=== PATIENT | male | born 1960 | race Caucasian/White ===

== ENCOUNTER 2021-06-12 20:20 | Inpatient (IN) | payer BC ==
[2021-06-12] MEDS ORDERED: SODIUM CHLORIDE 1,000 ML ONE (21:25)
[2021-06-12] MEDS ORDERED: ACETAMINOPHEN 500 MG TABLET (FP) PO ONE (21:25)
[2021-06-12] MEDS ORDERED: ACETAMINOPHEN 500 MG TABLET (FP) ONE (21:31)
[2021-06-12 21:54] LABS: ALBUMIN 3.6 g/dl (3.4-5.0); BILIRUBIN,TOTAL 1.3 mg/dl (0.2-1); CALCIUM 8.2 mg/dl (8.5-10); CREATININE 0.9 mg/dl (0.55-1.3)
[2021-06-12 22:42] LABS: HEMATOCRIT 46.7 % (35.4-49); HEMOGLOBIN 15.7 GM/dL (11.7-16.9); MCH 29.2 pg (25.7-33.7); MCHC 33.6 g/dl (32.0-35.9); MEAN CELL VOLUME 86.7 fl (80-96); MEAN PLT VOLUME 8.9 fl (7.5-11.1); PLATELET COUNT 250 10^3/uL (134-434); RBC 5.39 M/mm3 (4.00-5.60); RDW 21.4 % (11.9-15.9); WHITE BLOOD COUNT 5.1 K/mm3 (4.0-10.0)
[2021-06-12 23:55] LABS: ANISOCYTOSIS 1+; MACROCYTOSIS 0; PLATELET ESTIMATE NORMAL
[2021-06-13] MEDS ORDERED: DEXAMETHASONE SOD PHOSPHATE 4 MG/1 ML VIAL IVPUSH ONE (03:53)
[2021-06-13] MEDS ORDERED: DEXAMETHASONE SOD PHOSPHATE 10 MG/1 ML VIAL ONE (04:03)
[2021-06-13] MEDS ORDERED: ALBUTEROL SO4 HFA INHALER IH PRN (04:19)
[2021-06-13] MEDS ORDERED: ACETAMINOPHEN 325 MG TABLET (FP) ONE (08:56)
[2021-06-13] MEDS ORDERED: ALBUTEROL SO4 HFA INHALER IH ONE (08:56)
[2021-06-13] MEDS: VALSARTAN 160 MG TABLET PO SCH (09:05)
[2021-06-13] MEDS: ASPIRIN COATED 81 MG TABLET.EC PO SCH (09:05)
[2021-06-13] MEDS: ZINC SULFATE 220 MG CAPSULE (FP) PO SCH (09:06)
[2021-06-13] MEDS: guaiFENesin 200 MG/10 ML 10 ML UNIT-DOSE CUPS PO PRN (09:06)
[2021-06-13] MEDS: ENOXAPARIN NA (PORCINE) 40 MG/0.4 ML DISP.SYRIN SQ SCH (09:06)
[2021-06-13] MEDS: ASCORBIC ACID 500 MG TABLET (FP) PO SCH (09:06)
[2021-06-13] MEDS: amLODIPine BESYLATE 5 MG TABLET (FP) PO SCH (09:06)
[2021-06-13] MEDS: CHOLECALCIFEROL (VIT D3) 1,000 UNIT (25 MCG) TABLET PO SCH (09:06)
[2021-06-13] MEDS: ACETAMINOPHEN 325 MG TABLET (FP) PO PRN (09:06)
[2021-06-13 09:45] LABS: MAGNESIUM 2.3 mg/dL (1.8-2.4)
[2021-06-14] MEDS: ACETAMINOPHEN 325 MG TABLET (FP) PO PRN ×2 (00:12→22:41)
[2021-06-14] MEDS: VALSARTAN 160 MG TABLET PO SCH (09:00)
[2021-06-14] MEDS: DEXAMETHASONE SOD PHOSPHATE 4 MG/1 ML VIAL IVPUSH SCH (09:00)
[2021-06-14] MEDS: ENOXAPARIN NA (PORCINE) 40 MG/0.4 ML DISP.SYRIN SQ SCH (09:00)
[2021-06-14] MEDS: ASPIRIN COATED 81 MG TABLET.EC PO SCH (09:00)
[2021-06-14] MEDS: ZINC SULFATE 220 MG CAPSULE (FP) PO SCH (09:00)
[2021-06-14] MEDS: amLODIPine BESYLATE 5 MG TABLET (FP) PO SCH (09:00)
[2021-06-14] MEDS: ASCORBIC ACID 500 MG TABLET (FP) PO SCH (09:00)
[2021-06-14] MEDS: CHOLECALCIFEROL (VIT D3) 1,000 UNIT (25 MCG) TABLET PO SCH (09:00)
[2021-06-14 10:56] LABS: BLOOD UREA NITROGEN 18.5 mg/dL (7-18); CALCIUM 8.2 mg/dL (8.5-10.1)
[2021-06-14 10:59] LABS: CREATININE 0.9 mg/dL (0.55-1.3)
[2021-06-15 08:42] LABS: BASO % 0.3 % (0-2.0); EOS % 0.1 % (0-4.5); HEMATOCRIT 38.8 % (35.4-49); HEMOGLOBIN 13.1 GM/dL (11.7-16.9); LYMPH % 9.8 % (8-40); MCH 29.5 pg (25.7-33.7); MCHC 33.8 g/dl (32.0-35.9); MEAN CELL VOLUME 87.3 fl (80-96); MEAN PLT VOLUME 7.7 fl (7.5-11.1); MONO % 14.5 % (3.8-10.2); NEUT % 75.3 % (42.8-82.8); PLATELET COUNT 339 10^3/uL (134-434); RBC 4.45 M/mm3 (4.00-5.60); RDW 20.3 % (11.9-15.9); WHITE BLOOD COUNT 8.5 K/mm3 (4.0-10.0)
[2021-06-15 08:59] LABS: ALBUMIN 2.9 g/dl (3.4-5.0); CALCIUM 8.2 mg/dL (8.5-10.1)
[2021-06-15 09:02] LABS: CREATININE 0.8 mg/dL (0.55-1.3)
[2021-06-15 09:04] LABS: BILIRUBIN,TOTAL 0.9 mg/dL (0.2-1)
[2021-06-15] MEDS: amLODIPine BESYLATE 5 MG TABLET (FP) PO SCH (09:09)
[2021-06-15] MEDS: ZINC SULFATE 220 MG CAPSULE (FP) PO SCH (09:09)
[2021-06-15] MEDS: CHOLECALCIFEROL (VIT D3) 1,000 UNIT (25 MCG) TABLET PO SCH (09:09)
[2021-06-15] MEDS: DEXAMETHASONE SOD PHOSPHATE 4 MG/1 ML VIAL IVPUSH SCH (09:09)
[2021-06-15] MEDS: ASCORBIC ACID 500 MG TABLET (FP) PO SCH (09:09)
[2021-06-15] MEDS: ASPIRIN COATED 81 MG TABLET.EC PO SCH (09:10)
[2021-06-15] MEDS: ENOXAPARIN NA (PORCINE) 40 MG/0.4 ML DISP.SYRIN SQ SCH (09:10)
[2021-06-15] MEDS: VALSARTAN 160 MG TABLET PO SCH (09:10)
[2021-06-15 15:27] VITALS: BMI 36.3
[2021-06-15] MEDS: guaiFENesin 200 MG/10 ML 10 ML UNIT-DOSE CUPS PO PRN (21:37)
[2021-06-16 08:47] LABS: BASO % 0.3 % (0-2.0); HEMATOCRIT 41.4 % (35.4-49); LYMPH % 10.8 % (8-40); MCH 29.4 pg (25.7-33.7); MCHC 33.8 g/dl (32.0-35.9); MEAN CELL VOLUME 86.8 fl (80-96); MEAN PLT VOLUME 7.9 fl (7.5-11.1); MONO % 12.6 % (3.8-10.2); NEUT % 76.3 % (42.8-82.8); PLATELET COUNT 404 10^3/uL (134-434); RBC 4.77 M/mm3 (4.00-5.60); WHITE BLOOD COUNT 9.3 K/mm3 (4.0-10.0)
[2021-06-16] MEDS ORDERED: PT OWN MED DRAWER 7, Y5N ONE (09:04)
[2021-06-16 09:08] LABS: BLOOD UREA NITROGEN 18.3 mg/dL (7-18); CALCIUM 8.7 mg/dL (8.5-10.1)
[2021-06-16] MEDS: VALSARTAN 160 MG TABLET PO SCH (09:08)
[2021-06-16] MEDS: ASCORBIC ACID 500 MG TABLET (FP) PO SCH (09:08)
[2021-06-16] MEDS: ZINC SULFATE 220 MG CAPSULE (FP) PO SCH (09:08)
[2021-06-16] MEDS: CHOLECALCIFEROL (VIT D3) 1,000 UNIT (25 MCG) TABLET PO SCH (09:08)
[2021-06-16] MEDS: amLODIPine BESYLATE 5 MG TABLET (FP) PO SCH (09:08)
[2021-06-16] MEDS: guaiFENesin 200 MG/10 ML 10 ML UNIT-DOSE CUPS PO PRN ×2 (09:08→21:52)
[2021-06-16] MEDS: DEXAMETHASONE SOD PHOSPHATE 4 MG/1 ML VIAL IVPUSH SCH (09:08)
[2021-06-16 09:09] LABS: MAGNESIUM 2.4 mg/dL (1.8-2.4)
[2021-06-16] MEDS: ASPIRIN COATED 81 MG TABLET.EC PO SCH (09:09)
[2021-06-16] MEDS: ENOXAPARIN NA (PORCINE) 40 MG/0.4 ML DISP.SYRIN SQ SCH (09:09)
[2021-06-16 09:11] LABS: CREATININE 0.9 mg/dL (0.55-1.3); PHOSPHOROUS 3.2 mg/dL (2.5-4.9)
[2021-06-16 09:12] LABS: TOT PROT 7.6 g/dl (6.4-8.2)
[2021-06-16 09:13] LABS: BILIRUBIN,TOTAL 1.1 mg/dL (0.2-1)
[2021-06-16] MEDS: POLYETHYLENE GLYCOL (HEALTHYLAX) 3350 17 GM PACKET PO SCH (17:41)
[2021-06-17 09:08] LABS: HEMATOCRIT 39.9 % (35.4-49); HEMOGLOBIN 13.5 GM/dL (11.7-16.9); MCH 29.5 pg (25.7-33.7); MCHC 33.7 g/dl (32.0-35.9); MEAN CELL VOLUME 87.7 fl (80-96); MEAN PLT VOLUME 7.9 fl (7.5-11.1); PLATELET COUNT 427 10^3/uL (134-434); RBC 4.56 M/mm3 (4.00-5.60); RDW 19.7 % (11.9-15.9); WHITE BLOOD COUNT 8.4 K/mm3 (4.0-10.0)
[2021-06-17 09:57] LABS: CALCIUM 8.6 mg/dL (8.5-10.1)
[2021-06-17 09:58] LABS: ALBUMIN 2.7 g/dl (3.4-5.0); BLOOD UREA NITROGEN 17.2 mg/dL (7-18); MAGNESIUM 2.5 mg/dL (1.8-2.4)
[2021-06-17 10:00] LABS: PHOSPHOROUS 3.4 mg/dL (2.5-4.9)
[2021-06-17 10:02] LABS: BILIRUBIN,TOTAL 0.8 mg/dL (0.2-1)
[2021-06-17 10:03] LABS: CREATININE 0.9 mg/dL (0.55-1.3)
[2021-06-17 10:22] LABS: ANISOCYTOSIS 1+; MACROCYTOSIS 0; PLATELET ESTIMATE NORMAL
[2021-06-17] MEDS: ENOXAPARIN NA (PORCINE) 40 MG/0.4 ML DISP.SYRIN SQ SCH (10:26)
[2021-06-17] MEDS: VALSARTAN 160 MG TABLET PO SCH (10:26)
[2021-06-17] MEDS: POLYETHYLENE GLYCOL (HEALTHYLAX) 3350 17 GM PACKET PO SCH (10:26)
[2021-06-17] MEDS: DEXAMETHASONE SOD PHOSPHATE 4 MG/1 ML VIAL IVPUSH SCH (10:26)
[2021-06-17] MEDS: ASPIRIN COATED 81 MG TABLET.EC PO SCH (10:26)
[2021-06-17] MEDS: CHOLECALCIFEROL (VIT D3) 1,000 UNIT (25 MCG) TABLET PO SCH (10:27)
[2021-06-17] MEDS: amLODIPine BESYLATE 5 MG TABLET (FP) PO SCH (10:27)
[2021-06-17] MEDS: ASCORBIC ACID 500 MG TABLET (FP) PO SCH (10:27)
[2021-06-17] MEDS: ZINC SULFATE 220 MG CAPSULE (FP) PO SCH (10:27)
[2021-06-17] MEDS: guaiFENesin 200 MG/10 ML 10 ML UNIT-DOSE CUPS PO PRN ×2 (15:17→21:24)
[2021-06-18] MEDS: ACETAMINOPHEN 325 MG TABLET (FP) PO PRN (05:45)
[2021-06-18 09:05] LABS: HEMATOCRIT 38.6 % (35.4-49); MCH 29.3 pg (25.7-33.7); MCHC 33.6 g/dl (32.0-35.9); MEAN CELL VOLUME 87.3 fl (80-96); MEAN PLT VOLUME 7.9 fl (7.5-11.1); PLATELET COUNT 470 10^3/uL (134-434); RBC 4.42 M/mm3 (4.00-5.60); WHITE BLOOD COUNT 12.9 K/mm3 (4.0-10.0)
[2021-06-18 09:20] LABS: ALBUMIN 2.8 g/dl (3.4-5.0); BLOOD UREA NITROGEN 20.3 mg/dL (7-18); CALCIUM 8.4 mg/dL (8.5-10.1); MAGNESIUM 2.3 mg/dL (1.8-2.4)
[2021-06-18 09:23] LABS: CREATININE 0.9 mg/dL (0.55-1.3); PHOSPHOROUS 3.6 mg/dL (2.5-4.9)
[2021-06-18 09:24] LABS: TOT PROT 6.8 g/dl (6.4-8.2)
[2021-06-18 09:25] LABS: BILIRUBIN,TOTAL 0.7 mg/dL (0.2-1)
[2021-06-18] MEDS ORDERED: PT OWN MED DRAWER 7, Y5N ONE (10:43)
[2021-06-18] MEDS: VALSARTAN 160 MG TABLET PO SCH (10:48)
[2021-06-18] MEDS: POLYETHYLENE GLYCOL (HEALTHYLAX) 3350 17 GM PACKET PO SCH (10:48)
[2021-06-18] MEDS: ASPIRIN COATED 81 MG TABLET.EC PO SCH (10:48)
[2021-06-18] MEDS: ZINC SULFATE 220 MG CAPSULE (FP) PO SCH (10:49)
[2021-06-18] MEDS: ASCORBIC ACID 500 MG TABLET (FP) PO SCH (10:49)
[2021-06-18] MEDS: amLODIPine BESYLATE 5 MG TABLET (FP) PO SCH (10:49)
[2021-06-18] MEDS: CHOLECALCIFEROL (VIT D3) 1,000 UNIT (25 MCG) TABLET PO SCH (10:50)
[2021-06-18] MEDS: DEXAMETHASONE SOD PHOSPHATE 4 MG/1 ML VIAL IVPUSH SCH (10:50)
[2021-06-18] MEDS: ENOXAPARIN NA (PORCINE) 40 MG/0.4 ML DISP.SYRIN SQ SCH (10:51)
[2021-06-18 11:16] LABS: ANISOCYTOSIS 1+; MACROCYTOSIS 1+; OVALOCYTE 1+; PLATELET ESTIMATE NORMAL
[2021-06-18] MEDS: guaiFENesin 200 MG/10 ML 10 ML UNIT-DOSE CUPS PO PRN (21:31)
[2021-06-19 09:50] LABS: HEMATOCRIT 40.1 % (35.4-49); HEMOGLOBIN 13.7 GM/dL (11.7-16.9); MCH 29.5 pg (25.7-33.7); MEAN CELL VOLUME 86.8 fl (80-96); MEAN PLT VOLUME 7.5 fl (7.5-11.1); PLATELET COUNT 452 10^3/uL (134-434); RBC 4.62 M/mm3 (4.00-5.60); RDW 19.8 % (11.9-15.9); WHITE BLOOD COUNT 14.7 K/mm3 (4.0-10.0)
[2021-06-19] MEDS ORDERED: SODIUM CHLORIDE NASAL SPRAY 44 ML BOTTLE NS PRN (10:08)
[2021-06-19 10:11] LABS: CALCIUM 8.6 mg/dL (8.5-10.1)
[2021-06-19 10:12] LABS: ALBUMIN 2.9 g/dl (3.4-5.0); BLOOD UREA NITROGEN 18.5 mg/dL (7-18); MAGNESIUM 2.5 mg/dL (1.8-2.4)
[2021-06-19 10:15] LABS: CREATININE 0.8 mg/dL (0.55-1.3); PHOSPHOROUS 3.9 mg/dL (2.5-4.9)
[2021-06-19 10:16] LABS: BILIRUBIN,TOTAL 0.8 mg/dL (0.2-1)
[2021-06-19] MEDS: ENOXAPARIN NA (PORCINE) 40 MG/0.4 ML DISP.SYRIN SQ SCH (10:25)
[2021-06-19] MEDS: VALSARTAN 160 MG TABLET PO SCH (10:25)
[2021-06-19] MEDS: CHOLECALCIFEROL (VIT D3) 1,000 UNIT (25 MCG) TABLET PO SCH (10:25)
[2021-06-19] MEDS: POLYETHYLENE GLYCOL (HEALTHYLAX) 3350 17 GM PACKET PO SCH (10:25)
[2021-06-19] MEDS: DEXAMETHASONE SOD PHOSPHATE 4 MG/1 ML VIAL IVPUSH SCH (10:25)
[2021-06-19] MEDS: ZINC SULFATE 220 MG CAPSULE (FP) PO SCH (10:25)
[2021-06-19] MEDS: ASPIRIN COATED 81 MG TABLET.EC PO SCH (10:25)
[2021-06-19] MEDS: ASCORBIC ACID 500 MG TABLET (FP) PO SCH (10:25)
[2021-06-19] MEDS: amLODIPine BESYLATE 5 MG TABLET (FP) PO SCH (10:25)
[2021-06-19 10:30] LABS: ANISOCYTOSIS 1+; MACROCYTOSIS 1+; PLATELET ESTIMATE NORMAL
[2021-06-19 16:39] VITALS: BP 125/64; PULSE 63; TEMP 97.3
== END 2021-06-19 18:38 | disposition home or self-care (01) | DRG 177 ==
LOC: FER 20:20 → J8W 06-13 17:34
PROVIDERS: ADMIT Internal Medicine; ATTEND Internal Medicine
DX: U07.1 COVID-19 (principal); J96.01 Acute respiratory failure with hypoxia; J12.82 Pneumonia due to coronavirus disease 2019; I10 Essential (primary) hypertension; D86.9 Sarcoidosis, unspecified
CPT/HCPCS: 36415; 71045-TC-FY; 80048; 80053; 82550; 82553; 82728; 83615; 83735; 84100; 84484; 85025; 85379; 86140; 87040; 87086; 93005; 94010; 94761; 99285-25; C9803; U0003; U0005